=== PATIENT | male | born 1965 | race African-American/Black ===

== ENCOUNTER 2021-01-13 16:27 | Emergency (ER) | payer OTHER, SELFPAY ==
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
[2021-01-13 17:28] VITALS: BP 133/79; PULSE 87; RESP 18; TEMP 36.7; O2SAT 99
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
[2021-01-13] MEDS: IBUPROFEN 600 MG TABLET PO (17:52)
[2021-01-13 19:18] VITALS: BP 143/95; PULSE 73; RESP 16; O2SAT 96
== END 2021-01-13 19:19 | disposition home or self-care (01) ==
PROVIDERS: Emergency Provider Emergency Medicine
DX: S16.1XXA Strain of muscle, fascia and tendon at neck level, initial encounter (principal); M54.9 Dorsalgia, unspecified; S80.02XA Contusion of left knee, initial encounter; V43.52XA Car driver injured in collision with other type car in traffic accident, initial encounter; Y92.410 Unspecified street and highway as the place of occurrence of the external cause
CPT/HCPCS: 70450; 71101; 72072; 72125; 73564; 99284; A9270